=== PATIENT | female | born 1975 | race Caucasian/White ===

== ENCOUNTER 2019-11-02 07:23 | Emergency (ER) | payer BC ==
[~2019-11-02] VITALS: Ht 177.8 cm; Wt 86.2 kg
[~2019-11-02 07:23] MED LIST: BENTYL 20 MG TA20 M1 PO; CIPRO500 MG PO; DIOVAN 80 MG TA80 M1 PO; ZOFRAN ODT4 MG PO
[2019-11-02] MEDS ORDERED: JUNEL FE 1-201 EACH PO (07:37)
[2019-11-02] MEDS ORDERED: NORCO 5-325 TA1 EAC1 PO (08:54)
[2019-11-02] MEDS ORDERED: MEDROLDOSEPACK PO (08:54)
[2019-11-02 09:01] VITALS: BP 172/61
== END 2019-11-02 09:03 | disposition home or self-care (01) ==
LOC: M.ERS 07:23
DX: M25.561 Pain in right knee (principal); I10 Essential (primary) hypertension; Z87.891 Personal history of nicotine dependence; Z90.89 Acquired absence of other organs

== ENCOUNTER 2020-06-16 16:05 | Emergency (ER) | payer BC ==
[~2020-06-16] VITALS: Ht 177.8 cm; Wt 83.9 kg
[~2020-06-16 16:05] MED LIST changes: +JUNEL FE 1-201 EACH PO; +MEDROLDOSEPACK PO; +NORCO 5-325 TA1 EAC1 PO
[2020-06-16] MEDS ORDERED: ACYCLOVIR 200200 MG PO (16:17)
[2020-06-16] MEDS ORDERED: COZAAR 25 MG TA25 M1 PO (16:17)
[2020-06-16] MEDS ORDERED: NORCO 5-325 TA1 EAC2 PO (17:35)
[2020-06-16] MEDS ORDERED: NAPROSYN500 MG PO (17:35)
[2020-06-16 17:58] VITALS: BP 170/81
== END 2020-06-16 17:58 | disposition home or self-care (01) ==
LOC: M.ERS 16:05
DX: M25.461 Effusion, right knee (principal); M25.561 Pain in right knee; I10 Essential (primary) hypertension; Z90.49 Acquired absence of other specified parts of digestive tract; Z87.891 Personal history of nicotine dependence